=== PATIENT | female | born 1985 | race Caucasian/White ===

== ENCOUNTER 2018-02-17 20:45 | Emergency (ER) | payer MEDICAID ==
[~2018-02-17] VITALS: Ht 160 cm; Wt 84.8 kg
[2018-02-17] MEDS ORDERED: FLUO40CA9 PO (21:07)
[2018-02-17] MEDS ORDERED: QUET200T4 PO (21:07)
[2018-02-17] MEDS ORDERED: QUET300T5 PO (21:07)
[2018-02-17] MEDS ORDERED: PRAZ1CAP2 PO (21:08)
[2018-02-17] MEDS ORDERED: CARB200T PO (21:08)
[2018-02-17] MEDS ORDERED: MELO15TA24 PO (21:14)
[2018-02-17] MEDS ORDERED: TRAZ50TA18 PO (21:14)
[2018-02-17] MEDS ORDERED: OXYC-307 PO (21:15)
[2018-02-17] MEDS ORDERED: PROP10TA PO (21:16)
[2018-02-17] MEDS ORDERED: SODIUM CHLORIDE FLUSH 10ML SYR IVF ONE (21:30)
[2018-02-17] MEDS ORDERED: ONDANSETRON ODT 4 MG PO ONE (21:30)
[2018-02-17 21:41] LABS: BASOPHILS # (AUTO) 0.02 x10^3/uL (0-0.1); BASOPHILS % (AUTO) 0 % (0-1); EOSINOPHILS # (AUTO) 0.12 x10^3/uL (0-0.4); EOSINOPHILS % (AUTO) 2 % (1-7); LYMPHOCYTES # (AUTO) 2.29 x10^3/uL (1-3.4); LYMPHOCYTES % (AUTO) 34 % (22-44); MD NO; MEAN CORPUSCULAR HEMOGLOBIN 30.6 pg (27.0-34.8); MEAN CORPUSCULAR HGB CONC 34.5 g/dL (32.4-35.8); MEAN CORPUSCULAR VOLUME 88.7 fL (80-100); MEAN PLATELET VOLUME 8.9 fL (7.4-10.4); MONOCYTES # (AUTO) 0.31 x10^3/uL (0.2-0.8); MONOCYTES % (AUTO) 5 % (2-9); NEUTROPHILS % (AUTO) 59 % (42-75); PLATELET COUNT 260 x10^3/uL (130-400); RED BLOOD COUNT 4.45 x10^6/uL (3.82-5.3); RED CELL DISTRIBUTION WIDTH 14.2 % (9.6-15.2)
[2018-02-17] MEDS ORDERED: ONDANSETRON ODT 4 MG ONE (21:44)
[2018-02-17] MEDS ORDERED: MORPHINE SULFATE 4 MG/ML, 1ML ONE ×2 (21:44→22:47)
[2018-02-17] MEDS: MORPHINE SULFATE 4 MG/ML, 1ML IVPush PRN ×2 (21:48→22:50)
[2018-02-17 21:50] LABS: INTERNATIONAL NORMALIZED RATIO 0.95 (0.93-1.1); PROTHROMBIN TIME 9.8 Seconds (9.6-11.5)
[2018-02-17 21:53] LABS: ALANINE AMINOTRANSFERASE 26 U/L (12-78); ALBUMIN 3.4 g/dL (3.4-5.0); ANION GAP 8 mmol/L (5-15); CALCIUM 7.9 mg/dL (8.5-10.1); CHLORIDE 110 mmol/L (98-107); CREATININE 0.74 mg/dL (0.55-1.02)
[2018-02-17 21:56] LABS: ALKALINE PHOSPHATASE 98 U/L (45-117); BILIRUBIN,TOTAL 0.2 mg/dL (0.2-1.0); TOTAL PROTEIN 6.7 g/dL (6.4-8.2)
[2018-02-17 22:04] LABS: MICROSCOPIC INDICATED
[2018-02-17 22:05] LABS: CULTURE INDICATED? YES
[2018-02-17] MEDS ORDERED: OMNIPAQUE 350 MG/ML, 100ML BOTTLE ONE (22:38)
[2018-02-17] MEDS ORDERED: HYDROcodone/APAP 5/325 TABLET PO ONE (23:30)
[2018-02-17] MEDS ORDERED: HYDROcodone/APAP 5/325 TABLET ONE ×2 (23:37→23:38)
[2018-02-17 23:44] VITALS: BP 117/60
== END 2018-02-17 23:47 | disposition home or self-care (01) ==
LOC: ED 23:20
DX: N83.292 Other ovarian cyst, left side (principal); M19.90 Unspecified osteoarthritis, unspecified site; F31.9 Bipolar disorder, unspecified; F17.210 Nicotine dependence, cigarettes, uncomplicated; Z90.710 Acquired absence of both cervix and uterus
CPT/HCPCS: 36415; 74177; 80053; 81001; 83690; 85025; 85610; 85730; 87086; 93005; 96374; 96376; 99285; Q0162; Q9967

== ENCOUNTER 2018-03-30 17:52 | Emergency (ER) | payer MEDICAID ==
[~2018-03-30] VITALS: Ht 160 cm; Wt 85.5 kg
[~2018-03-30 17:52] MED LIST: CARB200T PO; FLUO40CA9 PO; MELO15TA24 PO; OXYC-307 PO; PRAZ1CAP2 PO; PROP10TA PO; QUET200T4 PO; QUET300T5 PO; TRAZ50TA18 PO
[2018-03-30 17:55] VITALS: BP 114/81
== END 2018-03-30 19:18 | disposition home or self-care (01) ==
LOC: ED 18:30
DX: S50.01XA Contusion of right elbow, initial encounter (principal); F31.9 Bipolar disorder, unspecified; F17.200 Nicotine dependence, unspecified, uncomplicated; Z90.710 Acquired absence of both cervix and uterus; W18.39XA Other fall on same level, initial encounter; Y93.89 Activity, other specified; Y92.89 Other specified places as the place of occurrence of the external cause; Y99.8 Other external cause status
CPT/HCPCS: 99284

== ENCOUNTER 2018-04-12 14:13 | Emergency (ER) | payer MEDICAID ==
[~2018-04-12] VITALS: Ht 160 cm; Wt 83.0 kg
[~2018-04-12 14:13] MED LIST changes: +TRAZ-136 PO; -TRAZ50TA18 PO
[2018-04-12 14:18] VITALS: BP 113/62
[2018-04-12 14:41] LABS: BASOPHILS # (AUTO) 0.02 x10^3/uL (0-0.1); BASOPHILS % (AUTO) 0 % (0-1); EOSINOPHILS # (AUTO) 0.09 x10^3/uL (0-0.4); EOSINOPHILS % (AUTO) 1 % (1-7); LYMPHOCYTES # (AUTO) 2.17 x10^3/uL (1-3.4); LYMPHOCYTES % (AUTO) 31 % (22-44); MD NO; MEAN CORPUSCULAR HEMOGLOBIN 30.7 pg (27.0-34.8); MEAN CORPUSCULAR HGB CONC 34.5 g/dL (32.4-35.8); MONOCYTES # (AUTO) 0.37 x10^3/uL (0.2-0.8); MONOCYTES % (AUTO) 5 % (2-9); NEUTROPHILS # (AUTO) 4.36 x10^3/uL (1.8-6.8); NEUTROPHILS % (AUTO) 62 % (42-75); PLATELET COUNT 305 x10^3/uL (130-400); RED BLOOD COUNT 4.92 x10^6/uL (3.82-5.3); RED CELL DISTRIBUTION WIDTH 13.6 % (9.6-15.2)
[2018-04-12 14:51] LABS: ALANINE AMINOTRANSFERASE 24 U/L (12-78); ALBUMIN 3.8 g/dL (3.4-5.0); ANION GAP 4 mmol/L (5-15); CALCIUM 8.4 mg/dL (8.5-10.1); CHLORIDE 109 mmol/L (98-107); CREATININE 0.67 mg/dL (0.55-1.02)
[2018-04-12 14:54] LABS: ALKALINE PHOSPHATASE 95 U/L (45-117); BILIRUBIN,TOTAL 0.1 mg/dL (0.2-1.0); TOTAL PROTEIN 7.6 g/dL (6.4-8.2)
[2018-04-12] MEDS ORDERED: MORPHINE SULFATE 4 MG/ML, 1ML ONE ×2 (14:58→15:52)
[2018-04-12] MEDS: MORPHINE SULFATE 4 MG/ML, 1ML IVPush PRN ×2 (14:59→15:54)
[2018-04-12 15:35] LABS: CULTURE INDICATED? YES; MICROSCOPIC INDICATED
[2018-04-12] MEDS ORDERED: OMNIPAQUE 350 MG/ML, 100ML BOTTLE ONE (15:46)
[2018-04-12] MEDS ORDERED: SODIUM CHLORIDE FLUSH 10ML SYR IVF ONE (16:00)
[2018-04-12] MEDS ORDERED: CEFTRIAXONE 1,000 MG in SODIUM CHLORIDE 0.9% 50 ML IV ONE (16:00)
[2018-04-12] MEDS ORDERED: CEFTRIAXONE PMX 1GM/50ML 50 ML ONE (16:36)
== END 2018-04-12 17:16 | disposition home or self-care (01) ==
LOC: ED 15:23
DX: N30.01 Acute cystitis with hematuria (principal); F17.200 Nicotine dependence, unspecified, uncomplicated
CPT/HCPCS: 36415; 74177; 80053; 81001; 83690; 85025; 87086; 96365; 96375; 96376; 99285; J0696; Q9967

== ENCOUNTER 2018-05-11 11:55 | Emergency (ER) | payer MEDICAID ==
[~2018-05-11] VITALS: Ht 160 cm; Wt 82.0 kg
[2018-05-11 12:30] LABS: BASOPHILS # (AUTO) 0.01 x10^3/uL (0-0.1); BASOPHILS % (AUTO) 0 % (0-1); EOSINOPHILS % (AUTO) 1 % (1-7); LYMPHOCYTES # (AUTO) 1.84 x10^3/uL (1-3.4); LYMPHOCYTES % (AUTO) 25 % (22-44); MD NO; MEAN CORPUSCULAR HEMOGLOBIN 29.8 pg (27.0-34.8); MEAN CORPUSCULAR VOLUME 87.7 fL (80-100); MEAN PLATELET VOLUME 8.9 fL (7.4-10.4); MONOCYTES # (AUTO) 0.32 x10^3/uL (0.2-0.8); MONOCYTES % (AUTO) 4 % (2-9); NEUTROPHILS # (AUTO) 5.21 x10^3/uL (1.8-6.8); NEUTROPHILS % (AUTO) 70 % (42-75); PLATELET COUNT 300 x10^3/uL (130-400); RED BLOOD COUNT 4.92 x10^6/uL (3.82-5.3)
[2018-05-11 12:40] LABS: ALBUMIN 3.8 g/dL (3.4-5.0); ANION GAP 4 mmol/L (5-15); CALCIUM 8.6 mg/dL (8.5-10.1); CHLORIDE 109 mmol/L (98-107); CREATININE 0.75 mg/dL (0.55-1.02)
[2018-05-11] MEDS ORDERED: ONDANSETRON ODT 4 MG PO PRN (14:30)
[2018-05-11] MEDS ORDERED: HYDROcodone/APAP 5/325 TABLET PO ONE (14:30)
[2018-05-11] MEDS ORDERED: BENZONATATE 100 MG CAPSULE PO ONE (14:30)
[2018-05-11] MEDS ORDERED: BENZONATATE 100 MG CAPSULE ONE (14:50)
[2018-05-11] MEDS ORDERED: ONDANSETRON ODT 4 MG ONE (14:50)
[2018-05-11] MEDS ORDERED: HYDROcodone/APAP 5/325 TABLET ONE (14:51)
[2018-05-11 15:05] LABS: MICROSCOPIC AUTO
[2018-05-11 15:12] LABS: CULTURE INDICATED? YES
[2018-05-11 15:58] VITALS: BP 129/67
== END 2018-05-11 17:27 | disposition home or self-care (01) ==
LOC: ED 14:43
DX: R31.29 Other microscopic hematuria (principal); R05 Cough; F17.210 Nicotine dependence, cigarettes, uncomplicated
CPT/HCPCS: 36415; 71046; 76830; 80048; 81001; 82040; 85025; 87086; 99285; Q0162

== ENCOUNTER 2018-08-16 12:45 | Emergency (ER) | payer MEDICAID ==
[~2018-08-16] VITALS: Ht 160 cm; Wt 79.6 kg
[~2018-08-16 12:45] MED LIST changes: -TRAZ-136 PO; +TRAZ50TA66 PO
[2018-08-16] MEDS ORDERED: ONDANSETRON 2MG/ML, 2ML ONE (14:26)
[2018-08-16] MEDS ORDERED: MORPHINE SULFATE 4 MG/ML, 1ML ONE ×2 (14:27→15:32)
[2018-08-16] MEDS ORDERED: SODIUM CHLORIDE FLUSH 10ML SYR IVF ONE (14:30)
[2018-08-16] MEDS ORDERED: ONDANSETRON 2MG/ML, 2ML IVPush ONE (14:30)
[2018-08-16 14:33] LABS: BASOPHILS # (AUTO) 0.05 x10^3/uL (0-0.1); BASOPHILS % (AUTO) 1 % (0-1); EOSINOPHILS # (AUTO) 0.07 x10^3/uL (0-0.4); EOSINOPHILS % (AUTO) 1 % (1-7); LYMPHOCYTES # (AUTO) 2.75 x10^3/uL (1-3.4); LYMPHOCYTES % (AUTO) 33 % (22-44); MD NO; MEAN CORPUSCULAR HEMOGLOBIN 29.6 pg (27.0-34.8); MEAN CORPUSCULAR HGB CONC 34.3 g/dL (32.4-35.8); MEAN CORPUSCULAR VOLUME 86.4 fL (80-100); MEAN PLATELET VOLUME 9.2 fL (7.4-10.4); MONOCYTES # (AUTO) 0.38 x10^3/uL (0.2-0.8); MONOCYTES % (AUTO) 5 % (2-9); NEUTROPHILS # (AUTO) 5.04 x10^3/uL (1.8-6.8); NEUTROPHILS % (AUTO) 61 % (42-75); PLATELET COUNT 299 x10^3/uL (130-400); RED CELL DISTRIBUTION WIDTH 14.4 % (9.6-15.2)
[2018-08-16] MEDS: MORPHINE SULFATE 4 MG/ML, 1ML IVPush PRN ×2 (14:33→16:06)
[2018-08-16 14:43] LABS: ALANINE AMINOTRANSFERASE 27 U/L (12-78); ALBUMIN 4.1 g/dL (3.4-5.0); ANION GAP 10 mmol/L (5-15); CALCIUM 8.7 mg/dL (8.5-10.1); CHLORIDE 107 mmol/L (98-107); CREATININE 0.64 mg/dL (0.55-1.02)
[2018-08-16 14:46] LABS: ALKALINE PHOSPHATASE 92 U/L (45-117); BILIRUBIN,TOTAL 0.4 mg/dL (0.2-1.0); TOTAL PROTEIN 7.7 g/dL (6.4-8.2)
[2018-08-16 14:49] LABS: CULTURE INDICATED? YES; MICROSCOPIC INDICATED
[2018-08-16 16:48] VITALS: BP 103/48
== END 2018-08-16 17:19 | disposition home or self-care (01) ==
LOC: ED 14:30
DX: R11.2 Nausea with vomiting, unspecified (principal); R19.7 Diarrhea, unspecified; Z90.710 Acquired absence of both cervix and uterus; K21.9 Gastro-esophageal reflux disease without esophagitis
CPT/HCPCS: 36415; 74021; 76830; 80053; 81001; 83690; 85025; 87086; 93005; 96374; 96375; 96376; 99284; J2405

== ENCOUNTER 2019-01-13 14:25 | Emergency (ER) | payer MEDICAID ==
[~2019-01-13] VITALS: Ht 160 cm; Wt 80.6 kg
[~2019-01-13 14:25] MED LIST changes: -PROP10TA PO; +PROP10TA16 PO
[2019-01-13 14:36] VITALS: BP 107/57
[2019-01-13 16:15] LABS: BASOPHILS # (AUTO) 0.06 x10^3/uL (0-0.1); BASOPHILS % (AUTO) 1 % (0-1); EOSINOPHILS # (AUTO) 0.15 x10^3/uL (0-0.4); EOSINOPHILS % (AUTO) 2 % (1-7); LYMPHOCYTES % (AUTO) 44 % (22-44); MD NO; MEAN CORPUSCULAR HEMOGLOBIN 29.6 pg (27.0-34.8); MEAN CORPUSCULAR VOLUME 87.1 fL (80-100); MEAN PLATELET VOLUME 9.4 fL (7.4-10.4); MONOCYTES # (AUTO) 0.38 x10^3/uL (0.2-0.8); MONOCYTES % (AUTO) 6 % (2-9); NEUTROPHILS # (AUTO) 2.87 x10^3/uL (1.8-6.8); NEUTROPHILS % (AUTO) 47 % (42-75); PLATELET COUNT 250 x10^3/uL (130-400); RED BLOOD COUNT 4.74 x10^6/uL (3.82-5.3); RED CELL DISTRIBUTION WIDTH 14.7 % (9.6-15.2)
[2019-01-13 16:19] LABS: ALANINE AMINOTRANSFERASE 21 U/L (12-78); ALBUMIN 3.7 g/dL (3.4-5.0); ANION GAP 7 mmol/L (5-15); CALCIUM 8.5 mg/dL (8.5-10.1); CHLORIDE 110 mmol/L (98-107); CREATININE 0.62 mg/dL (0.55-1.02)
[2019-01-13 16:21] LABS: ALKALINE PHOSPHATASE 69 U/L (45-117); BILIRUBIN,TOTAL 0.3 mg/dL (0.2-1.0); TOTAL PROTEIN 6.6 g/dL (6.4-8.2)
--- NOTE | 2019-01-13 16:27 | NUR ---
PT TO ROOM FROM LOBBY. NAD.
--- NOTE | 2019-01-13 16:42 | NUR ---
FIRST CONTACT WITH PT. ERP AT BEDSIDE FOR INITIAL ASSESSMENT. PT REPORTS PELVIC PAIN X THREE DAYS +N/V X 1 TODAY. HX OF PCOS AND HYST. "I KNOW THIS IS MY CYSTS". PT REPORTS THAT SHE IS SCHEDULED TO HAVE OVARIES REMOVED "IN A FEW DAYS" FOR TX OF CYSTS. UA COLLECTED AND SENT TO LAB. PT MEDICATED PER ORDERS
[2019-01-13] MEDS ORDERED: ONDANSETRON ODT 4 MG ONE (16:47)
[2019-01-13] MEDS ORDERED: OXYcodone/APAP 5/325MG TABLET ONE (16:48)
[2019-01-13] MEDS ORDERED: ONDANSETRON ODT 4 MG PO ONE (17:00)
[2019-01-13] MEDS ORDERED: OXYcodone/APAP 5/325MG TABLET PO ONE (17:00)
[2019-01-13 17:07] LABS: MICROSCOPIC AUTO
[2019-01-13 17:13] LABS: CULTURE INDICATED? YES
--- NOTE | 2019-01-13 18:03 | NUR ---
DC EDUCATION PROVIDED BY VIKRAM KEY. PT AMBULATED STEADILY TO DC WITH VIKRAM KEY. PT REPORTS TO TAKE BUS HOME
== END 2019-01-13 18:05 | disposition home or self-care (01) ==
LOC: ED 17:59
DX: N30.00 Acute cystitis without hematuria (principal); N83.291 Other ovarian cyst, right side; F17.200 Nicotine dependence, unspecified, uncomplicated; F31.9 Bipolar disorder, unspecified; M19.90 Unspecified osteoarthritis, unspecified site; Z85.830 Personal history of malignant neoplasm of bone; Z90.710 Acquired absence of both cervix and uterus
CPT/HCPCS: 36415; 76830; 80053; 81001; 85025; 87086; 99284; Q0162

== ENCOUNTER 2019-04-16 22:11 | Emergency (ER) | payer MEDICAID ==
[~2019-04-16] VITALS: Ht 160 cm; Wt 74.7 kg
[2019-04-17 01:57] VITALS: BP 103/56
== END 2019-04-17 02:43 | disposition home or self-care (01) ==
LOC: ED 22:55
DX: S30.1XXA Contusion of abdominal wall, initial encounter (principal); L03.311 Cellulitis of abdominal wall; F17.200 Nicotine dependence, unspecified, uncomplicated; Z90.710 Acquired absence of both cervix and uterus; X58.XXXA Exposure to other specified factors, initial encounter; Y93.89 Activity, other specified; Y92.89 Other specified places as the place of occurrence of the external cause; Y99.8 Other external cause status
CPT/HCPCS: 36415; 74177; 80053; 83605; 83690; 84703; 85025; 87040; 96365; 96375; 96376; 99284; J1170; J2270; J2405; Q9967

== ENCOUNTER 2019-08-29 16:28 | Emergency (ER) | payer MEDICAID ==
[~2019-08-29] VITALS: Ht 160 cm; Wt 71.1 kg
[2019-08-29 16:46] VITALS: BP 115/72
--- NOTE | 2019-08-29 18:50 | NUR ---
toradol allergy removed after discussion with patient
[2019-08-29] MEDS ORDERED: PROMETHAZINE 25 MG/ML, 1ML IM ONE (19:00)
[2019-08-29] MEDS ORDERED: DIPHENHYDRAMINE 25 MG CAPSULE PO ONE (19:00)
[2019-08-29] MEDS ORDERED: KETOROLAC 30 MG/1 ML IM ONE (19:00)
--- NOTE | 2019-08-29 19:00 | NUR ---
ecg obtained by emt
[2019-08-29] MEDS ORDERED: PROMETHAZINE 25 MG/ML, 1ML ONE (19:02)
[2019-08-29] MEDS ORDERED: DIPHENHYDRAMINE 50 MG CAPSULE ONE (19:02)
[2019-08-29] MEDS ORDERED: KETOROLAC 30 MG/1 ML ONE (19:03)
--- NOTE | 2019-08-29 19:07 | NUR ---
medicated per emar
--- NOTE | 2019-08-29 19:49 | NUR ---
pain relieved to 2/10. No reaction from toradol except pain relief Discharged home in the care of her significant other
== END 2019-08-29 19:51 | disposition home or self-care (01) ==
LOC: ED 19:45
DX: G43.001 Migraine without aura, not intractable, with status migrainosus (principal); J00 Acute nasopharyngitis [common cold]; Z90.710 Acquired absence of both cervix and uterus
CPT/HCPCS: 71046; 93005; 96372; 99283; J1885; J2550; Q0163

== ENCOUNTER 2019-09-25 11:10 | Emergency (ER) | payer MEDICAID ==
[~2019-09-25] VITALS: Ht 160 cm; Wt 72.0 kg
--- NOTE | 2019-09-25 11:34 | NUR ---
pt in room. as
--- NOTE | 2019-09-25 11:48 | NUR ---
pt to ed from home w/ S.O. sts diarrhea x5 days w/ maroon color. "I felt like I was getting another hemorrhoid." Loose brown stool and blood streaks. went to her doctor, had labs drawn a couple days ago but was told if cont to have blood in stool to go to hosp. last night LLQ abd pain started. 9/10 sharp pain, worse on palp. bs normoact. abd soft. hx colon ca in 2013 w/ polyp removal, chemo/radiation. had R ovary removed last march d/t cysts/endometriosis. vomited yesterday twice, sts had dark color. ermd in room plan for labs/us. sr on monitor 70s, denies cp/dizziness/weakness. vss. call evans in reach. piv est labs drawn. as
[2019-09-25] MEDS ORDERED: OMEP-110 PO (11:57)
[2019-09-25] MEDS ORDERED: SUMA50TA4 PO (11:57)
[2019-09-25] MEDS ORDERED: ONDANSETRON 2MG/ML, 2ML ONE (12:07)
[2019-09-25] MEDS ORDERED: HYDROmorphone 1 MG/ML, 1ML INJ ONE ×2 (12:07→13:06)
[2019-09-25] MEDS: HYDROmorphone 1 MG/ML, 1ML INJ IVPush PRN ×2 (12:09→13:09)
--- NOTE | 2019-09-25 12:13 | NUR ---
meds per nov, placed on 2 lnc prophylactically, pt to us. as
[2019-09-25 12:15] LABS: MICROSCOPIC NOT IND
[2019-09-25 12:22] LABS: BASOPHILS # (AUTO) 0.03 x10^3/uL (0-0.1); BASOPHILS % (AUTO) 0 % (0-1); EOSINOPHILS # (AUTO) 0.13 x10^3/uL (0-0.4); EOSINOPHILS % (AUTO) 2 % (1-7); LYMPHOCYTES # (AUTO) 2.51 x10^3/uL (1-3.4); LYMPHOCYTES % (AUTO) 32 % (22-44); MD NO; MEAN CORPUSCULAR HEMOGLOBIN 29.8 pg (27.0-34.8); MEAN CORPUSCULAR HGB CONC 33.5 g/dL (32.4-35.8); MEAN CORPUSCULAR VOLUME 88.8 fL (80-100); MEAN PLATELET VOLUME 9.2 fL (7.4-10.4); MONOCYTES # (AUTO) 0.37 x10^3/uL (0.2-0.8); MONOCYTES % (AUTO) 5 % (2-9); NEUTROPHILS # (AUTO) 4.83 x10^3/uL (1.8-6.8); NEUTROPHILS % (AUTO) 61 % (42-75); PLATELET COUNT 269 x10^3/uL (130-400); RED BLOOD COUNT 5.19 x10^6/uL (3.82-5.3); RED CELL DISTRIBUTION WIDTH 14.8 % (9.6-15.2)
[2019-09-25 12:25] LABS: CULTURE INDICATED? NO
[2019-09-25 12:28] LABS: ALBUMIN 3.9 g/dL (3.4-5.0); ANION GAP 8 mmol/L (5-15); CALCIUM 8.2 mg/dL (8.5-10.1); CHLORIDE 109 mmol/L (98-107); CREATININE 0.64 mg/dL (0.55-1.02)
[2019-09-25] MEDS ORDERED: ONDANSETRON 2MG/ML, 2ML IVPush ONE (12:30)
--- NOTE | 2019-09-25 12:45 | NUR ---
back in room. labs/ua wnl. as
[2019-09-25 13:00] VITALS: BP 110/53
--- NOTE | 2019-09-25 13:00 | NUR ---
vss. c/o pain after us. will remedicate. awaiting results. as
[2019-09-25] MEDS ORDERED: OXYcodone/APAP 5/325MG TABLET PO ONE (13:30)
[2019-09-25] MEDS ORDERED: OXYcodone/APAP 5/325MG TABLET ONE (13:53)
== END 2019-09-25 14:10 | disposition home or self-care (01) ==
LOC: ED 13:22
DX: E28.2 Polycystic ovarian syndrome (principal); F17.200 Nicotine dependence, unspecified, uncomplicated; Z90.710 Acquired absence of both cervix and uterus
CPT/HCPCS: 36415; 76830; 80048; 81003; 82040; 85025; 96374; 96375; 96376; 99284; J1170; J2405

== ENCOUNTER 2019-10-23 18:14 | Emergency (ER) | payer MEDICAID ==
[~2019-10-23] VITALS: Ht 160 cm; Wt 73.2 kg
[~2019-10-23 18:14] MED LIST changes: +OMEP-110 PO; +SUMA50TA4 PO
--- NOTE | 2019-10-23 18:34 | NUR ---
PT HAS CO ABDOMINAL PAIN, N/V/D SINCE YESTERDAY. PT DENIES CP OR SOB. PT NOT IN DISTRESS. GIVEN UA CUP.
[2019-10-23] MEDS ORDERED: SODIUM CHLORIDE 0.9% 1,000 ML IV ONE (19:24)
[2019-10-23] MEDS ORDERED: SODIUM CHLORIDE FLUSH 10ML SYR IVF ONE (19:30)
[2019-10-23] MEDS ORDERED: ONDANSETRON 2MG/ML, 2ML IVPush ONE (19:30)
[2019-10-23] MEDS ORDERED: HYDROmorphone 1 MG/ML, 1ML INJ ONE ×2 (19:31→20:57)
[2019-10-23] MEDS ORDERED: ONDANSETRON 2MG/ML, 2ML ONE (19:31)
[2019-10-23] MEDS: HYDROmorphone 2 MG/ML, 1ML IVPush PRN ×2 (19:48→20:59)
[2019-10-23 19:51] VITALS: BP 124/80
--- NOTE | 2019-10-23 19:54 | NUR ---
MEDICATED PER ORDERS FOR PAIN AND NAUSEA. IVF INFUSING UA AND LABS COLLECTED. NO NEEDS AT THIS TIME. PT WATCHING TV. VSS
[2019-10-23 19:58] LABS: BASOPHILS % (AUTO) 1 % (0-1); EOSINOPHILS # (AUTO) 0.11 x10^3/uL (0-0.4); EOSINOPHILS % (AUTO) 1 % (1-7); LYMPHOCYTES # (AUTO) 2.62 x10^3/uL (1-3.4); LYMPHOCYTES % (AUTO) 32 % (22-44); MD NO; MEAN CORPUSCULAR HEMOGLOBIN 29.9 pg (27.0-34.8); MEAN CORPUSCULAR HGB CONC 33.8 g/dL (32.4-35.8); MEAN CORPUSCULAR VOLUME 88.5 fL (80-100); MEAN PLATELET VOLUME 9.2 fL (7.4-10.4); MONOCYTES # (AUTO) 0.57 x10^3/uL (0.2-0.8); MONOCYTES % (AUTO) 7 % (2-9); NEUTROPHILS # (AUTO) 4.87 x10^3/uL (1.8-6.8); NEUTROPHILS % (AUTO) 59 % (42-75); PLATELET COUNT 313 x10^3/uL (130-400); RED BLOOD COUNT 4.95 x10^6/uL (3.82-5.3); RED CELL DISTRIBUTION WIDTH 14.6 % (9.6-15.2)
[2019-10-23 20:07] LABS: ANION GAP 6 mmol/L (5-15); CALCIUM 9.1 mg/dL (8.5-10.1); CHLORIDE 109 mmol/L (98-107)
[2019-10-23 20:11] LABS: ALANINE AMINOTRANSFERASE 58 U/L (12-78); ALKALINE PHOSPHATASE 86 U/L (45-117); BILIRUBIN,TOTAL 0.3 mg/dL (0.2-1.0); CREATININE 0.57 mg/dL (0.55-1.02); TOTAL PROTEIN 7.3 g/dL (6.4-8.2)
[2019-10-23 20:13] LABS: MICROSCOPIC INDICATED
[2019-10-23 20:15] LABS: CULTURE INDICATED? YES
--- NOTE | 2019-10-23 20:56 | NUR ---
REPORT TO JULES
--- NOTE | 2019-10-23 21:00 | NUR ---
PT RESTING QUIETLY ON GURNEY; AWAITING TEST RESULT
[2019-10-23] MEDS ORDERED: OMNIPAQUE 350 MG/ML, 100ML BOTTLE ONE (21:11)
--- NOTE | 2019-10-23 21:50 | NUR ---
PT AMBULATORY TO & FROM [facility] W/OUT INCIDENT, GAIT STEADY. NO STOOL SPECIMEN PROVIDED.
== END 2019-10-23 22:01 | disposition home or self-care (01) ==
LOC: ED 18:57
DX: N30.00 Acute cystitis without hematuria (principal); K29.00 Acute gastritis without bleeding; R11.2 Nausea with vomiting, unspecified; R19.7 Diarrhea, unspecified; G43.909 Migraine, unspecified, not intractable, without status migrainosus; F17.200 Nicotine dependence, unspecified, uncomplicated; Z90.710 Acquired absence of both cervix and uterus
CPT/HCPCS: 36415; 74177; 80053; 81001; 83690; 85025; 87086; 96361; 96374; 96375; 96376; 99285; J1170; J2405; J7030; Q9967

== ENCOUNTER 2019-12-15 17:29 | Emergency (ER) | payer MEDICAID ==
[~2019-12-15] VITALS: Ht 160 cm; Wt 73.8 kg
[2019-12-15 17:32] VITALS: BP 115/86
--- NOTE | 2019-12-15 18:13 | NUR ---
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
[2019-12-15] MEDS ORDERED: ONDANSETRON 2MG/ML, 2ML ONE (18:29)
[2019-12-15] MEDS ORDERED: MORPHINE SULFATE 4 MG/ML, 1ML ONE (18:29)
[2019-12-15] MEDS ORDERED: SODIUM CHLORIDE FLUSH 10ML SYR IVF ONE (18:30)
[2019-12-15] MEDS ORDERED: ONDANSETRON 2MG/ML, 2ML IVPush ONE (18:30)
[2019-12-15] MEDS ORDERED: MORPHINE SULFATE 4 MG/ML, 1ML IVPush PRN (18:30)
[2019-12-15 18:46] LABS: BASOPHILS # (AUTO) 0.04 x10^3/uL (0-0.1); BASOPHILS % (AUTO) 1 % (0-1); EOSINOPHILS % (AUTO) 2 % (1-7); LYMPHOCYTES # (AUTO) 2.16 x10^3/uL (1-3.4); LYMPHOCYTES % (AUTO) 42 % (22-44); MD NO; MEAN CORPUSCULAR HEMOGLOBIN 29.9 pg (27.0-34.8); MEAN CORPUSCULAR VOLUME 87.9 fL (80-100); MEAN PLATELET VOLUME 9.6 fL (7.4-10.4); MONOCYTES # (AUTO) 0.27 x10^3/uL (0.2-0.8); MONOCYTES % (AUTO) 5 % (2-9); NEUTROPHILS # (AUTO) 2.63 x10^3/uL (1.8-6.8); NEUTROPHILS % (AUTO) 51 % (42-75); PLATELET COUNT 236 x10^3/uL (130-400); RED BLOOD COUNT 4.92 x10^6/uL (3.82-5.3); RED CELL DISTRIBUTION WIDTH 14.2 % (9.6-15.2)
[2019-12-15 18:56] LABS: ALANINE AMINOTRANSFERASE 43 U/L (12-78); ALBUMIN 3.8 g/dL (3.4-5.0); ANION GAP 7 mmol/L (5-15); CALCIUM 8.6 mg/dL (8.5-10.1); CHLORIDE 110 mmol/L (98-107); CREATININE 0.65 mg/dL (0.55-1.02)
[2019-12-15 18:58] LABS: ALKALINE PHOSPHATASE 70 U/L (45-117); BILIRUBIN,TOTAL 0.1 mg/dL (0.2-1.0); TOTAL PROTEIN 7.2 g/dL (6.4-8.2)
[2019-12-15] MEDS ORDERED: OMNIPAQUE 350 MG/ML, 100ML BOTTLE ONE (19:53)
== END 2019-12-15 20:39 | disposition home or self-care (01) ==
LOC: ED 20:07
DX: N83.292 Other ovarian cyst, left side (principal); R10.32 Left lower quadrant pain; R11.0 Nausea; F17.200 Nicotine dependence, unspecified, uncomplicated; Z90.710 Acquired absence of both cervix and uterus; Z90.721 Acquired absence of ovaries, unilateral
CPT/HCPCS: 36415; 74177; 80053; 83690; 85025; 96374; 96375; 99285; J2270; J2405; Q9967

== ENCOUNTER 2020-01-21 19:40 | Emergency (ER) | payer MEDICAID ==
[~2020-01-21] VITALS: Ht 160 cm; Wt 70.1 kg
--- NOTE | 2020-01-21 19:58 | NUR ---
THIS IS A 34 YO F W/ C/O N/V/D AND ABD PAIN X3 DAYS. PT REPORTS SHE WAS RECENTLY DX W/ PANCREATITIS AND ADMITTED AT [facility]. PT IS RESTING ON GURNEY W/ CALL LIGHT IN REACH AND FAMILY AT BEDSIDE. RESP EVEN AND UNLABORED, NADN. PT REPORTS UNABLE TO PROVIDE A URINE SAMPLE AT THIS TIME. AWAITING ED EVAL.
[2020-01-21] MEDS ORDERED: MORPHINE SULFATE 4 MG/ML, 1ML ONE ×3 (20:15→21:10)
[2020-01-21] MEDS ORDERED: ONDANSETRON 2MG/ML, 2ML ONE (20:15)
[2020-01-21] MEDS ORDERED: MAALOX/HYOSCYAMINE/LIDOCAINE 45 ML BTL ONE (20:15)
[2020-01-21] MEDS ORDERED: FAMOTIDINE 20 MG/2 ML ONE (20:16)
[2020-01-21] MEDS: MORPHINE SULFATE 4 MG/ML, 1ML IVPush PRN ×2 (20:26→21:12)
[2020-01-21] MEDS ORDERED: ONDANSETRON 2MG/ML, 2ML IVPush ONE (20:30)
[2020-01-21] MEDS ORDERED: FAMOTIDINE 20 MG/2 ML IV ONE (20:30)
[2020-01-21] MEDS ORDERED: SODIUM CHLORIDE FLUSH 10ML SYR IVF ONE (20:30)
[2020-01-21] MEDS ORDERED: MAALOX/HYOSCYAMINE/LIDOCAINE 45 ML BTL PO ONE (20:30)
--- NOTE | 2020-01-21 20:50 | NUR ---
REPORT RECEIVED AND CARE ASSUMED. PT IN RADIOLOGY. WILL ASSESS UPON RETURN.
--- NOTE | 2020-01-21 20:53 | NUR ---
PT MEDICATED PER EMAR, PIV PLACED AND REPORT TO VERONA SUE.
--- NOTE | 2020-01-21 21:06 | NUR ---
PT RETURNED FROM RAD. STATES PAIN AND BURNING SENSATION CONTINUE BETWEEN -05/18. ua WAS COLLECTED AND SENT. LAB AT BEDSIDE FOR DRAW. CALL LIGHT IN REACH.
--- NOTE | 2020-01-21 21:20 | NUR ---
PT MEDICATED PER MAR FOR REPORTED PAIN. PT SPEAKING ON CELL PHONE DURING RN'S ASSESSMENT AND MEDICATING WITH NO S/S OF ACUTE DISTRESS. WARM BLANKET GIVEN AND CALL LIGHT IN REACH.
[2020-01-21 21:24] LABS: BASOPHILS # (AUTO) 0.04 x10^3/uL (0-0.1); BASOPHILS % (AUTO) 0 % (0-1); EOSINOPHILS # (AUTO) 0.12 x10^3/uL (0-0.4); EOSINOPHILS % (AUTO) 1 % (1-7); LYMPHOCYTES # (AUTO) 3.58 x10^3/uL (1-3.4); LYMPHOCYTES % (AUTO) 41 % (22-44); MD NO; MEAN CORPUSCULAR HEMOGLOBIN 29.5 pg (27.0-34.8); MEAN CORPUSCULAR HGB CONC 33.4 g/dL (32.4-35.8); MEAN CORPUSCULAR VOLUME 88.5 fL (80-100); MEAN PLATELET VOLUME 9.3 fL (7.4-10.4); MONOCYTES # (AUTO) 0.42 x10^3/uL (0.2-0.8); MONOCYTES % (AUTO) 5 % (2-9); NEUTROPHILS # (AUTO) 4.54 x10^3/uL (1.8-6.8); NEUTROPHILS % (AUTO) 52 % (42-75); PLATELET COUNT 295 x10^3/uL (130-400); RED BLOOD COUNT 5.13 x10^6/uL (3.82-5.3); RED CELL DISTRIBUTION WIDTH 13.6 % (9.6-15.2)
[2020-01-21 21:25] LABS: CULTURE INDICATED? NO; MICROSCOPIC NOT IND
[2020-01-21 21:28] LABS: ALANINE AMINOTRANSFERASE 23 U/L (12-78); ANION GAP 7 mmol/L (5-15); CALCIUM 9.3 mg/dL (8.5-10.1); CHLORIDE 108 mmol/L (98-107); CREATININE 0.71 mg/dL (0.55-1.02)
[2020-01-21 21:30] LABS: ALKALINE PHOSPHATASE 71 U/L (45-117); BILIRUBIN,TOTAL 0.3 mg/dL (0.2-1.0); TOTAL PROTEIN 7.6 g/dL (6.4-8.2)
[2020-01-21 22:29] VITALS: BP 111/75
== END 2020-01-21 22:32 | disposition home or self-care (01) ==
LOC: ED 20:57
DX: R10.13 Epigastric pain (principal); R11.2 Nausea with vomiting, unspecified; R19.7 Diarrhea, unspecified; F17.200 Nicotine dependence, unspecified, uncomplicated; Z90.710 Acquired absence of both cervix and uterus
CPT/HCPCS: 36415; 74021; 76700; 80053; 81003; 83690; 85025; 96374; 96375; 96376; 99285; J2270; J2405; J3490

== ENCOUNTER 2020-09-30 09:07 | Emergency (ER) | payer MEDICAID ==
[~2020-09-30] VITALS: Ht 160 cm; Wt 73.8 kg
[~2020-09-30 09:07] MED LIST changes: -OXYC-307 PO; +OXYC-380 PO
--- NOTE | 2020-09-30 09:28 | NUR ---
PT C/O N/V, ABD PAIN R SIDE, DIARRHEA, HEART BURN, AND BLOOD IN VOMIT. PT RECENTLY HAD BACK INJECTIONS FOR DISC DEGENERATION. PT ALSO HAS DIFFICULTY URINATING. PAIN 02/15. PA BEDSIDE.
[2020-09-30] MEDS ORDERED: ONDANSETRON 2MG/ML, 2ML ONE (09:37)
[2020-09-30] MEDS ORDERED: MORPHINE SULFATE 4 MG/ML, 1ML ONE ×2 (09:37→10:54)
[2020-09-30] MEDS: MORPHINE SULFATE 4 MG/ML, 1ML IVPush PRN ×2 (09:54→10:56)
[2020-09-30 09:58] LABS: BASOPHILS % (AUTO) 1 % (0-1); EOSINOPHILS % (AUTO) 1 % (1-7); LYMPHOCYTES % (AUTO) 21 % (22-44); MEAN CORPUSCULAR HEMOGLOBIN 29.1 pg (27.0-34.8); MEAN CORPUSCULAR HGB CONC 34.4 g/dL (32.4-35.8); MONOCYTES % (AUTO) 6 % (2-9); NEUTROPHILS % (AUTO) 72 % (42-75); PLATELET COUNT 310 x10^3/uL (130-400); RED BLOOD COUNT 5.63 x10^6/uL (3.82-5.3); RED CELL DISTRIBUTION WIDTH 14.2 % (9.6-15.2)
[2020-09-30 09:59] LABS: MD NO
[2020-09-30] MEDS ORDERED: ONDANSETRON 2MG/ML, 2ML IVPush ONE (10:00)
[2020-09-30] MEDS ORDERED: SODIUM CHLORIDE 0.9% 1,000ML IVBOLUS ONE (10:00)
[2020-09-30 10:10] LABS: ALANINE AMINOTRANSFERASE 31 U/L (12-78); ALBUMIN 4.4 g/dL (3.4-5.0); ANION GAP 7 mmol/L (5-15); CALCIUM 9.9 mg/dL (8.5-10.1); CHLORIDE 108 mmol/L (98-107); CREATININE 0.84 mg/dL (0.55-1.02)
[2020-09-30 10:13] LABS: ALKALINE PHOSPHATASE 97 U/L (45-117); BILIRUBIN,TOTAL 0.5 mg/dL (0.2-1.0); TOTAL PROTEIN 8.1 g/dL (6.4-8.2)
--- NOTE | 2020-09-30 10:27 | NUR ---
PT OFF THE FLOOR TO CT
[2020-09-30] MEDS ORDERED: OMNIPAQUE 350 MG/ML, 100ML BOTTLE ONE (10:33)
--- NOTE | 2020-09-30 10:34 | NUR ---
PT BACK IN ROOM
[2020-09-30 10:55] LABS: MICROSCOPIC AUTO
[2020-09-30] MEDS ORDERED: MAALOX/HYOSCYAMINE/LIDOCAINE 45 ML BTL PO ONE (11:30)
[2020-09-30] MEDS ORDERED: MAALOX/HYOSCYAMINE/LIDOCAINE 45 ML BTL ONE (11:58)
[2020-09-30 12:14] VITALS: BP 121/71
--- NOTE | 2020-09-30 12:29 | NUR ---
PT REC'VD DISCHARGE INSTRUCTIONS AND EDUCATION. PT HAD NO FURTHER QUESTIONS. PT AMBULATED TO DC AREA, STEADY GAIT. PT'S SPOUSE IN LOBBY TO TAKE PT HOME.
== END 2020-09-30 12:32 | disposition home or self-care (01) ==
LOC: ED 10:03
DX: A08.4 Viral intestinal infection, unspecified (principal); R10.13 Epigastric pain; R11.2 Nausea with vomiting, unspecified; R19.7 Diarrhea, unspecified; F17.290 Nicotine dependence, other tobacco product, uncomplicated; Z90.710 Acquired absence of both cervix and uterus
CPT/HCPCS: 36415; 74177; 80053; 81001; 83690; 85025; 96361; 96374; 96375; 96376; 99285; J2270; J2405; J7030; Q9967